=== PATIENT | female | born 1945 | race Caucasian/White ===

== ENCOUNTER 2017-04-24 13:46 | Observation (INO) | payer OTHER ==
[~2017-04-24] VITALS: Ht 156.2 cm; Wt 72.5 kg
[~2017-04-24 13:46] MED LIST: ARIC10TA PO; ASPI325T PO; CALCCHW6 CHEW; CLOP75TA PO; LISI-363 PO; MEMA10 PO; PRAV40 PO; SERT-132 PO; VITA10002 PO; VITA20003 PO
[2017-04-24 13:57] VITALS: BP 141/69; PULSE 76; RESP 16; TEMP 97.5; O2SAT 100
[2017-04-24 14:18] VITALS: BP 133/74; PULSE 74; RESP 20; O2SAT 100
[2017-04-24] MEDS ORDERED: PLAV75TA29 PO (14:37)
[2017-04-24] MEDS ORDERED: SERT-132 PO (14:37)
[2017-04-24] MEDS ORDERED: ASPI325T PO (14:37)
[2017-04-24] MEDS ORDERED: FLUT1SPR5 EACH NARE (14:37)
[2017-04-24] MEDS ORDERED: CALC8.5C CHEW (14:37)
[2017-04-24] MEDS ORDERED: VITA10002 PO (14:37)
[2017-04-24] MEDS ORDERED: VITA100064 PO (14:37)
[2017-04-24] MEDS ORDERED: LISI-515 PO (14:37)
[2017-04-24 14:45] LABS: AUTOMATED NEUTROPHIL # 5.4 TH/MM3 (1.8-7.7); BASOPHIL # 0.1 TH/MM3 (0-0.2); BASOPHIL % 0.8 % (0.0-2.0); EOSINOPHIL # 0.3 TH/MM3 (0-0.4); EOSINOPHIL % 3.6 % (0.0-4.0); HEMATOCRIT 36.9 % (35.0-46.0); HEMO FLAGS DIFF FINAL; LYMPH % 26.3 % (9.0-44.0); LYMPHOCYTE # 2.2 TH/MM3 (1.0-4.8); MEAN CORPUSCULAR HEMOGLOBIN 28.3 PG (27.0-34.0); MEAN CORPUSCULAR HGB CONC 33.7 % (32.0-36.0); MONO % 4.4 % (0.0-8.0); NEUT % 64.9 % (16.0-70.0); PLATELET COUNT 319 TH/MM3 (150-450); RED BLOOD COUNT 4.39 MIL/MM3 (4.00-5.30); WHITE BLOOD COUNT 8.4 TH/MM3 (4.0-11.0)
[2017-04-24] MEDS ORDERED: SODIUM CHLORIDE 0.9% FLUSH 10 ML FLUSH IV FLUSH PRN ×2 (14:45→16:30)
[2017-04-24 14:57] LABS: CHLORIDE 102 MEQ/L (98-107); POTASSIUM 4.2 MEQ/L (3.5-5.1); SODIUM (NA) 141 MEQ/L (136-145)
[2017-04-24 14:58] LABS: BLOOD, URINE MOD (NEG); GLUCOSE,URINE NEG (NEG); KETONE, URINE TRACE mg/dL (NEG); NITRITE,URINE NEG (NEG); PH, URINE 5.5 (5.0-8.5)
--- NOTE | 2017-04-24 14:58 | PD ---
HPI . Weakness and confusion Chief Complaint: General Weakness Time Seen by Provider: 14:20 Travel History International Travel<30 days: No Contact w/Intl Traveler<30days: No Traveled to known affect area: No History of Present Illness HPI This patient has a history of dementia. She is cared for at home by her daughter and a team of private care nurses/assistants. She is brought into us today by her daughter with a two-week history of increasing weakness and confusion the daughter reports malodorous urine and some occasional shaking. The daughter also reports a cough which she presumes is secondary to lisinopril. The daughter states that her symptoms all started about 2 weeks ago when she had viral gastroenteritis. She did have a fever at that time along with the vomiting and diarrhea. All of those symptoms subsided but the patient just has not bounced back to her usual self. The daughter states that she is normally able to ambulate with some assistance. She is also able to assist in some activities of daily living. She has been unable to do any of this for the last several days. Daughter further states that PO intake is a constant bilateral. She is concerned that the patient may be a little bit dehydrated. The patient herself is unable to contribute to her history. PFSH Past Medical History Hx Anticoagulant Therapy: Yes (asa 325mg daily and plavix every other day) Arthritis: Yes Asthma: No Autoimmune Disease: No Blood Disorders: No Depression: Yes Heart Rhythm Problems: No Cancer: No Cardiovascular Problems: Yes (htn on meds) High Cholesterol: Yes Chemotherapy: No Chest Pain: No Congestive Heart Failure: No COPD: No Cerebrovascular Accident: Yes (cva x 2 , several tia's) Dementia: Yes Diabetes: Yes (CONTROLLED BY DIET) Patient Takes Glucophage: No Diminished Hearing: No Endocrine: Yes Gastrointestinal Disorders: Yes (DIFFICULTY SWALLOWING DUE TO STROKE, NO PROBLEM SOLID) GERD: No Glaucoma: No Genitourinary: Yes (INCONTINENT) Headaches: No Hepatitis: No Hiatal Hernia: No Hypertension: Yes Immune Disorder: No Implanted Vascular Access Dvce: No Kidney Stones: No Musculoskeletal: Yes ( back and neck stiffness arthritis, ) Neurologic: Yes (dementia, neuropathy HODA LEGS, MULTIPLE CVA--LAST 2012, RIGHT SIDED WEAKNE) Psychiatric: Yes (DEMENTIA) Reproductive: No Respiratory: No Immunizations Current: No Myocardial Infarction: No Radiation Therapy: No Renal Failure: No Seizures: Yes (possible focal) Sickle Cell Disease: No Sleep Apnea: No Thyroid Disease: Yes (GOITER--HAD SURGERY) Ulcer: No Tetanus Vaccination: > 5 Years Influenza Vaccination: Yes PNEUMOCCOCAL Vaccine (Year): 2 ?: Not Menopausal: Yes Dilation and Curettage (D&C): Yes Past Surgical History Abdominal Surgery: No AICD: No Body Medical Devices: NONE Cardiac Surgery: No Section: Yes (X 1) Ear Surgery: No Endocrine Surgery: Yes (PARTIAL THYROIDECTOMY) Eye Surgery: No Genitourinary Surgery: No Gynecologic Surgery: Yes (D&C, C SECTION) Neurologic Surgery: No Oral Surgery: Yes (TONSILLECTOMY) Pacemaker: No Thoracic Surgery: No Tonsillectomy: Yes Other Surgery: Yes (THYROID brain shunt) Social History Alcohol Use: No Tobacco Use: No Substance Use: No Allergies-Medications (Allergen,Severity, Reaction): Coded Allergies: No Known Allergies (Verified , 04/24/17) Reported Meds & Prescriptions Reported Meds & Active Scripts Active Reported Flonase Nasal Protivin (Fluticasone Nasal Protivin) 50 Mcg/Act Protivin 50 Mcg EACH NARE BID Sertraline (Sertraline HCl) 50 Mg Tab 50 Mg PO DAILY Lisinopril 20 Mg Tab 20 Mg PO DAILY Vitamin B-12 (Cyanocobalamin) 1,000 Mcg Tab 3,000 Mcg PO DAILY Vitamin D (Cholecalciferol) 1,000 Unit Tab 2,000 Units PO QOD Viactiv (Calcium-Vitamins D & K) 500-500-40 Mg-Unit-Mcg Chew 1 Ea CHEW BID Plavix (Clopidogrel Bisulfate) 75 Mg Tab 75 Mg PO QOD Aspirin 325 Mg Tab 325 Mg PO DAILY Review of Systems ROS Limitations: Poor Historian, Other: (dementia) Except as stated in HPI: all other systems reviewed are Neg General / Constitutional: No: Fever, Chills Respiratory: Positive: Cough Gastrointestinal: No: Nausea, Vomiting, Diarrhea Genitourinary: Positive: Incontinence, Other Neurologic: Positive: Weakness (malodorous urine), Change in Mentation, No: Focal Abnormalities Physical Exam Narrative GENERAL: The patient is lying on the stretcher. She was able to tell me her name. She is otherwise unable to contribute to her history. SKIN: Warm and dry. HEAD: Atraumatic. Normocephalic. EYES: Pupils equal and round. ENT: No nasal bleeding or discharge. Mucous membranes pink and slightly dry. NECK: Trachea midline. Neck is supple. CARDIOVASCULAR: Regular rate and rhythm. RESPIRATORY: No accessory muscle use. Lungs sound clear. GASTROINTESTINAL: Abdomen soft, non-tender, nondistended. MUSCULOSKELETAL: No obvious deformities. No edema. NEUROLOGICAL: Awake and alert. No obvious cranial nerve deficits. Motor grossly within normal limits. PSYCHIATRIC: Unable to assess. Data Data Last Documented VS Vital Signs Date Time Temp Pulse Resp B/P Pulse Ox O2 Delivery O2 Flow Rate FiO2 04/24/17 14:18 70 99 Room Air 04/24/17 14:18 20 133/74 04/24/17 13:57 97.5 Orders Complete Blood Count With Diff (04/24/17 14:31) Comprehensive Metabolic Panel (04/24/17 14:31) Urinalysis - C+S If Indicated (04/24/17 14:31) Iv Access Insert/Monitor (04/24/17 14:31) Sodium Chloride 0.9% Flush (Ns Flush) (04/24/17 14:45) Chest, Single Ap (04/24/17 14:31) Cath For Specimen (04/24/17 14:31) Creatine Kinase (Cpk) (04/24/17 14:31) Urine Culture (04/24/17 14:50) Labs Laboratory Tests Test 04/24/17 04/24/17 14:00 14:50 White Blood Count 8.4 TH/MM3 Red Blood Count 4.39 MIL/MM3 Hemoglobin 12.4 GM/DL Hematocrit 36.9 % Mean Corpuscular Volume 84.0 FL Mean Corpuscular Hemoglobin 28.3 PG Mean Corpuscular Hemoglobin 33.7 % Concent Red Cell Distribution Width 13.0 % Platelet Count 319 TH/MM3 Mean Platelet Volume 7.9 FL Neutrophils (%) (Auto) 64.9 % Lymphocytes (%) (Auto) 26.3 % Monocytes (%) (Auto) 4.4 % Eosinophils (%) (Auto) 3.6 % Basophils (%) (Auto) 0.8 % Neutrophils # (Auto) 5.4 TH/MM3 Lymphocytes # (Auto) 2.2 TH/MM3 Monocytes # (Auto) 0.4 TH/MM3 Eosinophils # (Auto) 0.3 TH/MM3 Basophils # (Auto) 0.1 TH/MM3 CBC Comment DIFF FINAL Differential Comment Sodium Level 141 MEQ/L Potassium Level 4.2 MEQ/L Chloride Level 102 MEQ/L Carbon Dioxide Level 31.9 MEQ/L Anion Gap 7 MEQ/L Blood Urea Nitrogen 32 MG/DL Creatinine 1.20 MG/DL Estimat Glomerular Filtration 44 ML/MIN Rate Random Glucose 156 MG/DL Calcium Level 9.1 MG/DL Total Bilirubin 0.3 MG/DL Aspartate Amino Transf 9 U/L (AST/SGOT) Alanine Aminotransferase 17 U/L (ALT/SGPT) Alkaline Phosphatase 78 U/L Total Creatine Kinase 40 U/L Total Protein 7.5 GM/DL Albumin 3.3 GM/DL Urine Collection Type CLEAN CATCH Urine Color YELLOW Urine Turbidity CLOUDY Urine pH 5.5 Urine Specific [place] 1.020 Urine Protein 30 mg/dL Urine Glucose (UA) NEG mg/dL Urine Ketones TRACE mg/dL Urine Occult Blood MOD Urine Nitrite NEG Urine Bilirubin NEG Urine Leukocyte Esterase MOD Urine RBC 0-3 /hpf Urine WBC 25-49 /hpf Urine WBC Clumps MANY Urine Bacteria MOD /hpf Microscopic Urinalysis Comment CULTURE INDICATED MDM Medical Decision Making Medical Screen Exam Complete: Yes Emergency Medical Condition: Yes Medical Record Reviewed: Yes (her medical history includes previous CVA, diabetes, dementia, hypertension, normal pressure hydrocephalus, previous rhabdomyolysis.) Differential Diagnosis Differential diagnosis of weakness includes but is not limited to infection, CVA , electrolyte disturbance, renal failure, hypoglycemia, UTI, ACS, acute blood loss Narrative Course Patient presents for evaluation of increased weakness and confusion over the course of last couple weeks. The daughter presumes that the patient has urinary tract infection. CBC & BMP Diagram 04/24/17 14:00 UA>>mod LE, 25-49 WBC, WBC clumps, mod bact Diagnosis Primary Impression: UTI (urinary tract infection) Qualified Code: N30.00 - Acute cystitis without hematuria Isela Miner MD Apr 24, 2017 14:57
[2017-04-24 15:01] LABS: METHOD OF COLLECTION CLEAN CATCH; URINE COLOR YELLOW (YELLW/STRAW)
[2017-04-24 15:01] LABS: ANION GAP 7 MEQ/L (5-15); BICARBONATE 31.9 MEQ/L (21.0-32.0)
[2017-04-24 15:02] LABS: BLOOD UREA NITROGEN 32 MG/DL (7-18)
[2017-04-24 15:02] LABS: BACTERIA, URINE MOD /hpf; COMMENT (UR) CULTURE INDICATED; CULTURE IF INDICATED CULTURE INDICATED; RBC, URINE 0-3 /hpf (0-3)
[2017-04-24 15:04] LABS: ALT (GPT) 17 U/L (10-53)
[2017-04-24 15:05] LABS: AST (GOT) 9 U/L (15-37); GLOMERULAR FILTRATION RATE 44 ML/MIN (>89)
[2017-04-24 15:06] LABS: TOTAL BILIRUBIN ADULT 0.3 MG/DL (0.2-1.0)
[2017-04-24 15:07] LABS: ALKALINE PHOSPHATASE 78 U/L (45-117)
[2017-04-24 15:08] LABS: CREATINE KINASE 40 U/L (26-192)
[2017-04-24] MEDS ORDERED: SODIUM CHLOR 0.9% 1000 ML INJ 1,000 ML IV ONE (15:30)
[2017-04-24] MEDS ORDERED: cefTRIAXone INJ 1,000 MG in SODIUM CHLORIDE 0.9% INJ 100 ML IV ONE (15:30)
--- NOTE | 2017-04-24 15:57 | RADHPO ---
EXAM DATE/TIME: 04/24/2017 14:37 [facility] COMPARISON: CHEST SINGLE AP, April 20, 2015, 18:44. INDICATIONS : Cough. MEDICAL HISTORY : None. SURGICAL HISTORY : None. ENCOUNTER: Initial ACUITY: 3 days PAIN SCORE: 4/10 LOCATION: Bilateral chest FINDINGS: A single view of the chest demonstrates the lungs to be symmetrically aerated without evidence of mas s, infiltrate or effusion. Central line is in good position. The cardiomediastinal contours are unre markable. Osseous structures are intact. CONCLUSION: No acute disease. Ramón Sykes MD FACR on April 24, 2017 at 15:32 Board Certified Radiologist. This report was verified electronically.
[2017-04-24 16:25] VITALS: BP 150/70; PULSE 59; RESP 18; O2SAT 98
[2017-04-24] MEDS ORDERED: MAGNESIUM HYDROXIDE SUSP 30 ML CUP PO PRN (16:30)
[2017-04-24] MEDS ORDERED: BISACODYL 10 MG SUPP RECTAL PRN (16:30)
[2017-04-24] MEDS ORDERED: LACTULOSE SYRUP 20 GM/30 ML CUP PO PRN (16:30)
[2017-04-24] MEDS ORDERED: NALOXONE HCL 0.4 MG/ML AMP IV PRN (16:30)
[2017-04-24] MEDS ORDERED: ACETAMINOPHEN 325 MG TAB PO PRN (16:30)
[2017-04-24] MEDS ORDERED: SENNOSIDES 8.6 MG TAB PO PRN (16:30)
[2017-04-24] MEDS ORDERED: ONDANSETRON HCL 4 MG/2 ML VIAL IVP PRN (16:30)
[2017-04-24 17:58] VITALS: BP 115/71
[2017-04-24 18:00] VITALS: BP 137/57; PULSE 70; RESP 23; TEMP 98.3; O2SAT 98
--- NOTE | 2017-04-24 18:24 | HHI.HP ---
[facility] Service [facility] Primary Care Physician Mike Mccarthy MD Admission Diagnosis UTI Diagnoses: (1) Generalized weakness Diagnosis: Principal (2) UTI (urinary tract infection) (3) Acute kidney injury (4) Hypertension (5) Diabetes (6) Dementia Chief Complaint: Weakness Travel History International Travel<30 Days: No Contact w/Intl Traveler <30 Da: No Traveled to Known Affected Are: No History of Present Illness The patient is a 72-year-old female with history of dementia who was brought into the ER by her daughter for evaluation of increasing weakness and confusion over the past 1-2 weeks. She states that about 2 weeks ago the patient had a "stomach bug". There were multiple family members that had similar symptoms. Her GI symptoms resolved one week ago. She does not have any further nausea, vomiting, or diarrhea. Over the past week she has been come increasingly fatigued and the patient's daughter and caretakers have had difficulty moving her. She has also displayed increased confusion. She does have baseline confusion secondary to dementia, which is likely vascular dementia from multiple CVAs. She denies chest pain or dyspnea. Denies fever, chills, night sweats. The patient does answer some questions, but much of the history is provided by her daughter at bedside. Review of Systems Constitutional: DENIES: Fever, Chills, Night Sweats Eyes: DENIES: Blurred vision, Vision loss Ears, nose, mouth, throat: DENIES: Hearing loss Respiratory: DENIES: Cough, Wheezing, Sputum production, Shortness of breath Cardiovascular: DENIES: Chest pain, Palpitations, Dyspnea on Exertion, Lower Extremity Edema Gastrointestinal: DENIES: Abdominal pain, Constipation, Diarrhea, Nausea, Vomiting Genitourinary: DENIES: Urinary frequency, Urinary incontinence, Urgency, Hematuria, Dysuria, Nocturia Musculoskeletal: DENIES: Joint pain, Muscle aches Integumentary: DENIES: Pruritus, Rash Hematologic/lymphatic: DENIES: Bruising Neurologic: DENIES: Headache Past Family Social History Past Medical History Hypertension Hyperlipidemia CVA 2 Normal pressure hydrocephalus Dementia Diabetes, diet controlled Past Surgical History section D&C Tonsillectomy Partial thyroidectomy Tonsillectomy BASKET MA[employer]ER shunt placement Reported Medications Flonase Nasal [place] (Fluticasone Nasal [place]) 50 Mcg/Act [place] 50 Mcg EACH NARE BID Sertraline (Sertraline HCl) 50 Mg Tab 50 Mg PO DAILY Lisinopril 20 Mg Tab 20 Mg PO DAILY Vitamin B-12 (Cyanocobalamin) 1,000 Mcg Tab 3,000 Mcg PO DAILY Vitamin D (Cholecalciferol) 1,000 Unit Tab 2,000 Units PO QOD Viactiv (Calcium-Vitamins D & K) 500-500-40 Mg-Unit-Mcg Chew 1 Ea CHEW BID Plavix (Clopidogrel Bisulfate) 75 Mg Tab 75 Mg PO QOD Aspirin 325 Mg Tab 325 Mg PO DAILY Allergies: Coded Allergies: No Known Allergies (Verified , 04/24/17) Family History Cancer Diabetes Social History Denies alcohol, tobacco, or illicit drug use. Physical Exam Vital Signs Vital Signs Date Time Temp Pulse Resp B/P Pulse Ox O2 Delivery O2 Flow Rate FiO2 04/24/17 17:58 62 18 115/71 97 04/24/17 16:25 59 18 150/70 98 Room Air 04/24/17 14:18 70 99 Room Air 04/24/17 14:18 74 20 133/74 100 Room Air 04/24/17 13:57 97.5 76 16 141/69 100 Physical Exam GENERAL: Elderly female in no acute distress. HEENT: Normocephalic, atraumatic. Pupils equal, round and reactive. Extraocular movements intact. No scleral icterus. No injection or drainage. Oropharynx is clear. Mucous membranes are moist. CARDIOVASCULAR: Regular rate and rhythm without murmurs, gallops, or rubs. RESPIRATORY: Clear to auscultation. No wheezes, rales, or rhonchi. Breathing is non-labored. GASTROINTESTINAL: Abdomen soft, non-tender, nondistended. EXTREMITIES: No lower extremity edema. No calf tenderness. PSYCH: Alert, but confused. Laboratory Laboratory Tests Test 04/24/17 04/24/17 14:00 14:50 White Blood Count 8.4 Red Blood Count 4.39 Hemoglobin 12.4 Hematocrit 36.9 Mean Corpuscular Volume 84.0 Mean Corpuscular Hemoglobin 28.3 Mean Corpuscular Hemoglobin 33.7 Concent Red Cell Distribution Width 13.0 Platelet Count 319 Mean Platelet Volume 7.9 Neutrophils (%) (Auto) 64.9 Lymphocytes (%) (Auto) 26.3 Monocytes (%) (Auto) 4.4 Eosinophils (%) (Auto) 3.6 Basophils (%) (Auto) 0.8 Neutrophils # (Auto) 5.4 Lymphocytes # (Auto) 2.2 Monocytes # (Auto) 0.4 Eosinophils # (Auto) 0.3 Basophils # (Auto) 0.1 CBC Comment DIFF FINAL Differential Comment Sodium Level 141 Potassium Level 4.2 Chloride Level 102 Carbon Dioxide Level 31.9 Anion Gap 7 Blood Urea Nitrogen 32 Creatinine 1.20 Estimat Glomerular Filtration 44 Rate Random Glucose 156 Calcium Level 9.1 Total Bilirubin 0.3 Aspartate Amino Transf 9 (AST/SGOT) Alanine Aminotransferase 17 (ALT/SGPT) Alkaline Phosphatase 78 Total Creatine Kinase 40 Total Protein 7.5 Albumin 3.3 Urine Collection Type CLEAN CATCH Urine Color YELLOW Urine Turbidity CLOUDY Urine pH 5.5 Urine Specific [place] 1.020 Urine Protein 30 Urine Glucose (UA) NEG Urine Ketones TRACE Urine Occult Blood MOD Urine Nitrite NEG Urine Bilirubin NEG Urine Leukocyte Esterase MOD Urine RBC 0-3 Urine WBC 25-49 Urine WBC Clumps MANY Urine Bacteria MOD Microscopic Urinalysis Comment CULTURE INDICATED Date/Time Procedure Status Source Growth 04/24/17 14:50 Urine Culture Received Urine Clean Catch Pending Result Diagram: 04/24/17 1400 04/24/17 1400 Imaging Last Impressions Chest X-Ray 04/24/17 1431 Signed Impressions: Service Date/Time: Monday, April 24, 2017 14:37 - CONCLUSION: No acute disease. Ramón Sykes MD FACR Assessment and Plan Assessment and Plan 1. Generalized weakness: Likely multifactorial. Patient has had multiple CVAs in the past as well as diagnosis of normal pressure hydrocephalus. Weakness has worsened over the past 2 weeks. This was likely exacerbated by gastroenteritis that resolved 1 week ago. Current UTI is likely contributing as well. Physical therapy eval. 2. UTI: Continue Rocephin. Urine culture pending. 3. Acute kidney injury: Likely secondary to dehydration. Patient had gastroenteritis that resolved about a week ago. She has not been drinking as much liquids since then. IV fluids. Monitor BUN and creatinine. 4. Hypertension: Hold lisinopril secondary to acute kidney injury. 5. History of CVA, TIAs: Continue aspirin, Plavix. 6. DVT prophylaxis: SCDs, COMFORT hose. Problem Qualifiers (1) UTI (urinary tract infection): Qualified Code: N30.00 - Acute cystitis without hematuria Mathew Torres MD Apr 24, 2017 18:24
[2017-04-24] MEDS: SODIUM CHLOR 0.9% 1000 ML INJ 1,000 ML IV SCH (18:57)
[2017-04-24 20:00] VITALS: BP 153/61; PULSE 64; RESP 26; TEMP 98.6; O2SAT 99
[2017-04-24] MEDS: SODIUM CHLORIDE 0.9% FLUSH 10 ML FLUSH IV FLUSH SCH (21:00)
[2017-04-24] MEDS: CLOPIDOGREL 75 MG TAB PO SCH (21:32)
[2017-04-24] MEDS: DOCUSATE SODIUM 50 MG/SENNA 8.6 MG TAB PO SCH (21:32)
[2017-04-24] MEDS: LISINOPRIL 20 MG TAB PO SCH (21:32)
[2017-04-25] VITALS: BP 159/74; PULSE 61; RESP 16; TEMP 98; O2SAT 97
[2017-04-25 04:00] VITALS: BP 161/71; PULSE 66; RESP 21; TEMP 98.2; O2SAT 96
[2017-04-25 06:40] LABS: POTASSIUM 4.1 MEQ/L (3.5-5.1)
[2017-04-25 06:46] LABS: BICARBONATE 32.4 MEQ/L (21.0-32.0)
[2017-04-25 08:00] VITALS: BP 134/64; PULSE 63; RESP 16; TEMP 98.7; O2SAT 96
[2017-04-25] MEDS: SODIUM CHLORIDE 0.9% FLUSH 10 ML FLUSH IV FLUSH SCH ×2 (09:00→20:14)
[2017-04-25] MEDS ORDERED: LISINOPRIL 20 MG TAB PO SCH (09:00)
[2017-04-25] MEDS: SERTRALINE HCL 50 MG TAB PO SCH (09:07)
[2017-04-25] MEDS: SODIUM CHLOR 0.9% 1000 ML INJ 1,000 ML IV SCH ×2 (09:07→23:06)
[2017-04-25] MEDS: ASPIRIN 325 MG TAB PO SCH (09:08)
[2017-04-25] MEDS: DOCUSATE SODIUM 50 MG/SENNA 8.6 MG TAB PO SCH ×2 (09:08→20:14)
--- NOTE | 2017-04-25 11:21 | HHI.PR ---
Subjective Remarks Follow up weakness, UTI. Patient is still very weak. Denies pain, dyspnea. Per nursing, the patient is incontinent of urine. Objective Vitals Vital Signs Date Time Temp Pulse Resp B/P Pulse Ox O2 Delivery O2 Flow Rate FiO2 04/25/17 08:00 98.7 63 16 134/64 96 04/25/17 04:00 98.2 66 21 161/71 96 04/25/17 00:00 98.0 61 16 159/74 97 04/24/17 20:00 98.6 64 26 153/61 99 04/24/17 18:00 98.3 70 23 137/57 98 04/24/17 17:58 62 18 115/71 97 04/24/17 16:25 59 18 150/70 98 Room Air 04/24/17 14:18 70 99 Room Air 04/24/17 14:18 74 20 133/74 100 Room Air 04/24/17 13:57 97.5 76 16 141/69 100 I/O 04/24/17 04/24/17 04/24/17 04/25/17 04/25/17 04/25/17 07:00 15:00 23:00 07:00 15:00 23:00 Intake Total 1620 ml 560 ml Balance 1620 ml 560 ml Intake Oral 240 ml IV Total 1380 ml 560 ml # Voids 4 4 Result Diagram: 04/24/17 1400 04/25/17 0538 Imaging Last Impressions Chest X-Ray 04/24/17 1431 Signed Impressions: Service Date/Time: Monday, April 24, 2017 14:37 - CONCLUSION: No acute disease. Ramón Sykes MD FACR Objective Remarks General: Elderly female in no acute distress. Heart: Regular rate and rhythm. No murmur. Lungs: Clear to auscultation bilaterally. No wheezes, rales, or rhonchi. Breathing is nonlabored. Abdomen: Soft, nontender, nondistended. Extremities: No lower extremity edema. Psych: Alert, but confused. Procedures None Urinary Catheter: No Vascular Central Line Catheter: No A/P Problem List: (1) Generalized weakness ICD Code: R53.1 Status: Acute (2) UTI (urinary tract infection) ICD Code: N39.0 Status: Acute (3) Acute kidney injury ICD Code: N17.9 Status: Acute (4) Hypertension ICD Code: I10 Status: Chronic (5) Diabetes ICD Code: E11.9 Status: Chronic (6) Dementia ICD Code: F03.90 Status: Chronic Assessment and Plan 1. Generalized weakness: Likely multifactorial. Patient has had multiple CVAs in the past as well as diagnosis of normal pressure hydrocephalus. Weakness has worsened over the past 2 weeks. This was likely exacerbated by gastroenteritis that resolved 1 week ago. Current UTI is likely contributing as well. Physical therapy eval. 2. UTI: Continue Rocephin. Urine culture pending. 3. Acute kidney injury: Likely secondary to dehydration. Patient had gastroenteritis that resolved about a week ago. Liquid intake has been decreased. Continue IV fluids. Monitor BUN and creatinine. 4. Hypertension: Hold lisinopril secondary to acute kidney injury. 5. History of CVA, TIAs: Continue aspirin, Plavix. 6. DVT prophylaxis: SCDs, COMFORT vazquez. Problem Qualifiers (1) UTI (urinary tract infection): Qualified Code: N30.00 - Acute cystitis without hematuria Mathew Torres MD Apr 25, 2017 11:21
[2017-04-25 12:00] VITALS: BP 141/76; PULSE 70; RESP 18; TEMP 97.7; O2SAT 96
[2017-04-25 16:00] VITALS: BP 156/74; PULSE 76; RESP 18; TEMP 98.4; O2SAT 95
[2017-04-25] MEDS: cefTRIAXone INJ 1,000 MG in SODIUM CHLORIDE 0.9% INJ 100 ML IV SCH (16:48)
[2017-04-25 20:00] VITALS: BP 148/65; PULSE 81; RESP 21; TEMP 98.4; O2SAT 96
[2017-04-25] MEDS: LISINOPRIL 20 MG TAB PO SCH (20:14)
[2017-04-26] VITALS: BP 135/83; PULSE 76; RESP 17; TEMP 98.8; O2SAT 95
[2017-04-26 04:00] VITALS: BP 131/75; PULSE 64; RESP 15; TEMP 98.1; O2SAT 97
[2017-04-26 06:20] LABS: POTASSIUM 3.9 MEQ/L (3.5-5.1)
[2017-04-26 06:24] LABS: BICARBONATE 28.5 MEQ/L (21.0-32.0)
[2017-04-26 08:00] VITALS: TEMP 97.2
[2017-04-26] MEDS: SODIUM CHLORIDE 0.9% FLUSH 10 ML FLUSH IV FLUSH SCH ×2 (09:44→20:11)
[2017-04-26] MEDS: SERTRALINE HCL 50 MG TAB PO SCH (09:44)
[2017-04-26] MEDS: ASPIRIN 325 MG TAB PO SCH (09:44)
[2017-04-26] MEDS: CLOPIDOGREL 75 MG TAB PO SCH (09:44)
[2017-04-26] MEDS: DOCUSATE SODIUM 50 MG/SENNA 8.6 MG TAB PO SCH ×2 (09:44→20:09)
--- NOTE | 2017-04-26 10:32 | HHI.PR ---
Subjective Remarks Follow up weakness, UTI. Patient states that she feels weak, but otherwise has no complaints. Denies chest pain, dyspnea. Objective Vitals Vital Signs Date Time Temp Pulse Resp B/P Pulse Ox O2 Delivery O2 Flow Rate FiO2 04/26/17 08:00 97.2 04/26/17 04:00 98.1 64 15 131/75 97 04/26/17 00:00 98.8 76 17 135/83 95 04/25/17 20:00 98.4 81 21 148/65 96 04/25/17 16:00 98.4 76 18 156/74 95 04/25/17 12:00 97.7 70 18 141/76 96 I/O 04/25/17 04/25/17 04/25/17 04/26/17 04/26/17 04/26/17 07:00 15:00 23:00 07:00 15:00 23:00 Intake Total 560 ml 846 ml 710 ml 940 ml Balance 560 ml 846 ml 710 ml 940 ml Intake Oral 320 ml 240 ml IV Total 560 ml 526 ml 470 ml 940 ml # Voids 4 2 2 2 Result Diagram: 04/24/17 1400 04/26/17 0535 Imaging Last Impressions Chest X-Ray 04/24/17 1431 Signed Impressions: Service Date/Time: Monday, April 24, 2017 14:37 - CONCLUSION: No acute disease. Ramón Sykes MD FACR Objective Remarks General: Elderly female in no acute distress. Sitting up in a chair. Heart: Regular rate and rhythm. No murmur. Lungs: Clear to auscultation bilaterally. No wheezes, rales, or rhonchi. Breathing is nonlabored. Abdomen: Soft, nontender, nondistended. Extremities: No lower extremity edema. Psych: Alert, but confused. Oriented to city, hospital, month. Not oriented to year. Procedures None Urinary Catheter: No Vascular Central Line Catheter: No A/P Problem List: (1) Generalized weakness ICD Code: R53.1 Status: Acute (2) UTI (urinary tract infection) ICD Code: N39.0 Status: Acute (3) Acute kidney injury ICD Code: N17.9 Status: Acute (4) Hypertension ICD Code: I10 Status: Chronic (5) Diabetes ICD Code: E11.9 Status: Chronic (6) Dementia ICD Code: F03.90 Status: Chronic Assessment and Plan 1. Generalized weakness: Likely multifactorial. Patient has had multiple CVAs in the past as well as diagnosis of normal pressure hydrocephalus. Weakness has worsened over the past 2 weeks. This was likely exacerbated by gastroenteritis that resolved 1 week ago. Current UTI is likely contributing as well. Physical therapy eval. 2. UTI: Continue Rocephin. Urine culture growing pansensitive E. coli. 3. Acute kidney injury: Likely secondary to dehydration. Patient had gastroenteritis that resolved about a week ago. Per nursing, she is having adequate oral intake at this time. Stop IV fluids. Monitor BUN, creatinine. 4. Hypertension: Hold lisinopril secondary to acute kidney injury. 5. History of CVA, TIAs: Continue aspirin, Plavix. 6. DVT prophylaxis: COMFORT Martinez. Discharge Planning Plan for discharge to SNF when arrangements can be made. Problem Qualifiers (1) UTI (urinary tract infection): Qualified Code: N30.00 - Acute cystitis without hematuria Mathew Torres MD Apr 26, 2017 10:32
[2017-04-26] MEDS ORDERED: BACT800T5 PO (10:34)
[2017-04-26 12:00] VITALS: BP 119/67; PULSE 77; RESP 18; TEMP 98.4; O2SAT 98
[2017-04-26 16:00] VITALS: BP 159/77; PULSE 70; RESP 18; TEMP 98.6; O2SAT 96
[2017-04-26] MEDS: cefTRIAXone INJ 1,000 MG in SODIUM CHLORIDE 0.9% INJ 100 ML IV SCH (16:32)
[2017-04-26 20:00] VITALS: BP 130/63; PULSE 86; RESP 21; TEMP 98.6; O2SAT 97
[2017-04-26] MEDS: LISINOPRIL 20 MG TAB PO SCH (20:09)
[2017-04-27] VITALS: BP 136/70; PULSE 90; RESP 17; TEMP 98.1; O2SAT 96
[2017-04-27 04:00] VITALS: BP 134/72; PULSE 84; RESP 23; TEMP 97.9; O2SAT 98
[2017-04-27 08:00] VITALS: BP 134/73; PULSE 67; RESP 21; TEMP 98.3; O2SAT 99
--- NOTE | 2017-04-27 08:23 | HHI.PR ---
Subjective Remarks Follow up UTI, weakness. Patient has no complaints at this time. Denies pain. Denies dyspnea, cough, nausea, vomiting. States that she feels a little better. Objective Vitals Vital Signs Date Time Temp Pulse Resp B/P Pulse Ox O2 Delivery O2 Flow Rate FiO2 04/27/17 04:00 97.9 84 23 134/72 98 04/27/17 00:00 98.1 90 17 136/70 96 04/26/17 20:00 98.6 86 21 130/63 97 04/26/17 16:00 98.6 70 18 159/77 96 04/26/17 12:00 98.4 77 18 119/67 98 I/O 04/26/17 04/26/17 04/26/17 04/27/17 04/27/17 04/27/17 07:00 15:00 23:00 07:00 15:00 23:00 Intake Total 940 ml 625 ml Balance 940 ml 625 ml Intake Oral 520 ml IV Total 940 ml 105 ml # Voids 2 3 1 3 Result Diagram: 04/24/17 1400 04/26/17 0535 Imaging Last Impressions Chest X-Ray 04/24/17 1431 Signed Impressions: Service Date/Time: Monday, April 24, 2017 14:37 - CONCLUSION: No acute disease. Ramón Sykes MD FACR Objective Remarks General: Elderly female in no acute distress. Heart: Regular rate and rhythm. No murmur. Lungs: Clear to auscultation bilaterally. No wheezes, rales, or rhonchi. Breathing is nonlabored. Abdomen: Soft, nontender, nondistended. Extremities: No lower extremity edema. Psych: Sleeping, but awakens and answers questions appropriately. Procedures None Urinary Catheter: No Vascular Central Line Catheter: No A/P Problem List: (1) Generalized weakness ICD Code: R53.1 Status: Acute (2) UTI (urinary tract infection) ICD Code: N39.0 Status: Acute (3) Acute kidney injury ICD Code: N17.9 Status: Acute (4) Hypertension ICD Code: I10 Status: Chronic (5) Diabetes ICD Code: E11.9 Status: Chronic (6) Dementia ICD Code: F03.90 Status: Chronic Assessment and Plan 1. Generalized weakness: Likely multifactorial. Patient has had multiple CVAs in the past as well as diagnosis of normal pressure hydrocephalus. Weakness has worsened over the past 2 weeks. This was likely exacerbated by gastroenteritis that resolved 1 week ago. Current UTI is likely contributing as well. Continue physical therapy. 2. UTI: Continue Rocephin. Urine culture growing pansensitive E. coli. 3. Acute kidney injury: Likely secondary to dehydration. Patient had gastroenteritis that resolved about a week ago. Per nursing, oral intake has improved. 4. Hypertension: Continue lisinopril. 5. History of CVA, TIAs: Continue aspirin, Plavix. 6. DVT prophylaxis: COMFORT [place]. Discharge Planning Plan for discharge to SNF when arrangements can be made. Problem Qualifiers (1) UTI (urinary tract infection): Qualified Code: N30.00 - Acute cystitis without hematuria Mathew Torres MD Apr 27, 2017 08:23
--- NOTE | 2017-04-27 08:24 | HHI.DCPOC ---
Discharge Care Plan Diagnosis: (1) Hypertension (2) Diabetes (3) Dementia (4) UTI (urinary tract infection) (5) Generalized weakness (6) Acute kidney injury Goals to Promote Your Health * To prevent worsening of your condition and complications * To maintain your health at the optimal level Directions to Meet Your Goals Take your medications as prescribed Follow your dietary instruction Follow activity as directed Keep your appointments as scheduled Take your immunizations and boosters as scheduled If your symptoms worsen call your PCP, if no PCP go to Urgent Care Center or Emergency Room Smoking is Dangerous to Your Health. Avoid second hand smoke Call the 24-hour hour crisis hotline for domestic abuse at Mathew Torres MD Apr 27, 2017 08:24
[2017-04-27] MEDS: SERTRALINE HCL 50 MG TAB PO SCH (09:14)
[2017-04-27] MEDS: ASPIRIN 325 MG TAB PO SCH (09:14)
[2017-04-27] MEDS: DOCUSATE SODIUM 50 MG/SENNA 8.6 MG TAB PO SCH (09:15)
[2017-04-27] MEDS: SODIUM CHLORIDE 0.9% FLUSH 10 ML FLUSH IV FLUSH SCH (09:15)
[2017-04-27 12:00] VITALS: BP 136/69; PULSE 79; RESP 18; TEMP 98; O2SAT 97
[2017-04-27 16:00] VITALS: BP 132/75; PULSE 82; RESP 16; TEMP 97.8; O2SAT 98
[2017-04-27] MEDS: cefTRIAXone INJ 1,000 MG in SODIUM CHLORIDE 0.9% INJ 100 ML IV SCH (16:00)
== END 2017-04-27 19:20 ==
LOC: PHED 13:46 → PHEDA 16:03 → PHICU 18:29
PROVIDERS: ADMIT Family Medicine; ATTEND Family Medicine
DX: R53.1 Weakness (principal); N30.00 Acute cystitis without hematuria; N17.9 Acute kidney failure, unspecified; I10 Essential (primary) hypertension; R05 Cough; R41.0 Disorientation, unspecified; R53.83 Other fatigue; E78.5 Hyperlipidemia, unspecified; E78.00 Pure hypercholesterolemia, unspecified; E11.9 Type 2 diabetes mellitus without complications; F03.90 Unspecified dementia, unspecified severity, without behavioral disturbance, psychotic disturbance, mood disturbance, and anxiety; G62.9 Polyneuropathy, unspecified; G91.2 (Idiopathic) normal pressure hydrocephalus; F32.9 Major depressive disorder, single episode, unspecified; M19.90 Unspecified osteoarthritis, unspecified site; Z79.899 Other long term (current) drug therapy; Z79.82 Long term (current) use of aspirin; Z79.02 Long term (current) use of antithrombotics/antiplatelets; Z86.73 Personal history of transient ischemic attack (TIA), and cerebral infarction without residual deficits; Z98.2 Presence of cerebrospinal fluid drainage device
CPT/HCPCS: 71010; 76937; 80048; 80053; 81001; 82550; 85025; 87077; 87086; 87186; 96361; 96374; 97162; 99285; G0378; G8987; G8988; J0696; J7030; P9612